=== PATIENT | female | born 1970 | race Native Hawaiian/Other Pacific Islander ===

== ENCOUNTER 2016-11-11 17:19 | Emergency (ER) | payer OTHER ==
[~2016-11-11] VITALS: Ht 162.6 cm; Wt 132.0 kg
[2016-11-11 19:03] VITALS: BP 148/80; TEMP 97.6
== END 2016-11-11 19:04 | disposition home or self-care (01) ==
LOC: ED 17:19
DX: B35.4 Tinea corporis (principal)
CPT/HCPCS: 99282

== ENCOUNTER 2017-04-16 18:50 | Observation (INO) | payer OTHER ==
[~2017-04-16] VITALS: Ht 162.6 cm; Wt 139.1 kg
[2017-04-16 18:52] VITALS: BP 149/94; TEMP 98.9
[2017-04-16 19:13] LABS: PLATELET COUNT 319 K/uL (152-353)
[2017-04-16 19:26] LABS: SODIUM 141 mmol/L (136-145)
[2017-04-16 21:00] VITALS: BP 124/75; TEMP 98.7
[2017-04-16 21:54] LABS: PARTIAL THROMBOPLASTIN TIME 23.3 SECONDS (24.5-33.6)
[2017-04-17 04:03] VITALS: BP 116/71; TEMP 98.6; Ht 162.6 cm; Wt 139.1 kg
[2017-04-17] MEDS ORDERED: CLARITIN10 M1 PO (04:21)
[2017-04-17] MEDS ORDERED: FLONASE AL50 MCG/ACT (04:22)
[2017-04-17] MEDS ORDERED: TRAM50TA PO (04:22)
[2017-04-17 04:25] LABS: PLATELET COUNT 304 K/uL (152-353)
[2017-04-17 04:54] LABS: POTASSIUM 3.4 mmol/L (3.6-5.2); SODIUM 140 mmol/L (136-145)
[2017-04-17 08:00] VITALS: BP 117/66; TEMP 98.3
[2017-04-17 12:00] VITALS: BP 109/59; TEMP 97.6
--- NOTE | 2017-04-17 16:17 | NUR ---
DC INSTRUCTIONS GIVEN TO PT AND FMAILY. RX CALLED INTO [facility] IN [place] PER CHERIE BASS. IV DC'D WITH CANNULA INTACT AND SITE CARE PROVIDED. NAD NOTED. PT LEFT AMBULATORY REQUESTED.
== END 2017-04-17 16:20 | disposition home or self-care (01) ==
LOC: ED 18:50 → MED/SURG 20:25
PROVIDERS: Emergency Medicine
DX: R07.89 Other chest pain (principal); E66.01 Morbid (severe) obesity due to excess calories
CPT/HCPCS: 36415; 80053; 82550; 83735; 84484; 85027; 85610; 85730; 86318; 93005; 99220; 99283; G0378; J1650

== ENCOUNTER 2021-10-27 22:31 | Emergency (ER) | payer OTHER ==
[~2021-10-27] VITALS: Ht 162.6 cm; Wt 141.5 kg
[~2021-10-27 22:31] MED LIST: CLARITIN10 M1 PO; FLONASE AL50 MCG/ACT; TRAM50TA PO
[2021-10-27 23:28] LABS: PLATELET COUNT 267 K/uL (152-353)
[2021-10-27 23:35] LABS: POTASSIUM 3.2 mmol/L (3.6-5.2)
[2021-10-28 02:15] VITALS: BP 133/74; TEMP 98.3
== END 2021-10-28 02:15 | disposition home or self-care (01) ==
LOC: ED 22:31
PROVIDERS: Emergency Medicine Emergency Medical Services
DX: H81.09 Meniere's disease, unspecified ear (principal); R53.1 Weakness; Z20.822 Contact with and (suspected) exposure to COVID-19
CPT/HCPCS: 36415; 80053; 81000; 85027; 87086; 87088; 87635; 99283; U0003

== ENCOUNTER 2022-09-03 15:40 | Emergency (ER) | payer OTHER ==
[~2022-09-03] VITALS: Ht 162.6 cm; Wt 140.6 kg
[2022-09-03 15:40] VITALS: TEMP 99.1
[2022-09-03 17:01] LABS: PLATELET COUNT 362 K/uL (152-353)
[2022-09-03 17:17] LABS: POTASSIUM 3.1 mmol/L (3.6-5.2)
[2022-09-03 21:15] VITALS: BP 141/82
== END 2022-09-03 21:15 | disposition home or self-care (01) ==
LOC: ED 15:40
PROVIDERS: Family Medicine
DX: M25.561 Pain in right knee (principal); L03.115 Cellulitis of right lower limb; Z98.890 Other specified postprocedural states
CPT/HCPCS: 36415; 80053; 83605; 85027; 85379; 96365; 99284; J0696; Q9963